=== PATIENT | female | born 1960 | race African-American/Black ===

== ENCOUNTER 2020-07-21 17:15 | Emergency (ER) | payer BC ==
[2020-07-21 18:13] VITALS: BMI 32.2
[2020-07-21] MEDS ORDERED: ACETAMINOPHEN 500 MG TABLET (FP) PO ONE (18:40)
[2020-07-21] MEDS ORDERED: SODIUM CHLORIDE 1,000 ML IV STA (18:40)
[2020-07-21] MEDS ORDERED: ACETAMINOPHEN 500 MG TABLET (FP) ONE (20:06)
[2020-07-21 20:29] LABS: BASO % 0.1 % (0-2.0); EOS % 2.3 % (0-4.5); HEMATOCRIT 34.5 % (32.4-45.2); HEMOGLOBIN 10.8 GM/dL (10.7-15.3); LYMPH % 21.2 % (8-40); MCHC 31.4 g/dl (32.0-36.0); MEAN CELL VOLUME 66.8 fl (80-96); MEAN PLT VOLUME 7.2 fl (7.5-11.1); MONO % 8.5 % (3.8-10.2); NEUT % 67.9 % (42.8-82.8); PLATELET COUNT 275 K/MM3 (134-434); RBC 5.16 M/mm3 (3.60-5.2); RDW 15.4 % (11.6-15.6); WHITE BLOOD COUNT 5.5 K/mm3 (4.0-10.0)
[2020-07-21 20:45] LABS: CHLORIDE 105 mmol/L (98-107); POTASSIUM 4.1 mmol/L (3.5-5.1); SODIUM 137 mmol/L (136-145)
[2020-07-21 20:47] LABS: ALBUMIN 3.3 g/dl (3.4-5.0); ANION GAP 6 MMOL/L (8-16); CALCIUM 8.6 mg/dL (8.5-10.1); CO2 26 mmol/L (21-32); GLUCOSE,RANDOM 123 mg/dL (74-106)
[2020-07-21 20:50] LABS: CREATININE 0.9 mg/dL (0.55-1.3); SGPT/ALT 33 U/L (13-61)
[2020-07-21 20:51] LABS: SGOT/AST 29 U/L (15-37)
[2020-07-21 20:52] LABS: BILIRUBIN,TOTAL 0.4 mg/dL (0.2-1); TOT PROT 6.7 g/dl (6.4-8.2)
[2020-07-21 20:54] LABS: ALK PHOS 113 U/L (45-117)
[2020-07-21 20:59] LABS: LDH 306 U/L (84-246)
[2020-07-21] MEDS ORDERED: BAMLANIVIMAB 700 MG in SODIUM CHLORIDE 250 ML IVPB ONE (21:03)
[2020-07-21 23:04] LABS: ANISOCYTOSIS 1+
[2020-07-22 01:09] VITALS: BP 143/80; PULSE 104; TEMP 98.2
== END 2020-07-22 01:09 | disposition home or self-care (01) ==
LOC: JER 17:15
PROC: 3E03329 Introduction of Other Anti-infective into Peripheral Vein, Percutaneous Approach (ICD-10-PCS; principal; 2020-07-21)
PROC: 3E0337Z Introduction of Electrolytic and Water Balance Substance into Peripheral Vein, Percutaneous Approach (ICD-10-PCS; 2020-07-21)
DX: U07.1 COVID-19 (principal)
CPT/HCPCS: 36415; 80053; 82550; 82728; 83615; 84484; 85025; 85379; 85384; 86140; 93005; 93010; 99284-25; M0239; Q0239

== ENCOUNTER → 2020-12-28 | Day surgery (SDC) | payer BC | END | disposition home or self-care (01) | LOC: JRADUS-SUR 08:35 | PROVIDERS: ATTEND Family Medicine | PROC: 0HBU3ZX Excision of Left Breast, Percutaneous Approach, Diagnostic (ICD-10-PCS; principal; 2020-12-28) | DX: N63.24 Unspecified lump in the left breast, lower inner quadrant (principal); Z53.8 Procedure and treatment not carried out for other reasons | CPT/HCPCS: 76642-TC-LT ==